=== PATIENT | male | born 1970 | race Two or more races ===

== ENCOUNTER 2018-03-10 02:29 | Emergency (ER) | payer SELFPAY ==
[2018-03-10] MEDS: LIDO:MAALOX 1:1 20 ML SINGLE DOSE. SWSW (03:21)
== END 2018-03-10 03:35 | disposition home or self-care (01) ==
LOC: ER 02:29
DX: T18.9XXA Foreign body of alimentary tract, part unspecified, initial encounter (principal); T18.198A Other foreign object in esophagus causing other injury, initial encounter; X58.XXXA Exposure to other specified factors, initial encounter; Y93.89 Activity, other specified; Y99.8 Other external cause status; Y92.89 Other specified places as the place of occurrence of the external cause
CPT/HCPCS: 99282